=== PATIENT | female | born 2000 | race Caucasian/White ===

== ENCOUNTER 2022-01-05 20:09 | Outpatient (CLI) | payer BC | END 2022-01-05 20:10 | disposition critical access hospital (66) | LOC: EMS 20:09 | DX: R46.89 Other symptoms and signs involving appearance and behavior (principal); R41.82 Altered mental status, unspecified; T62.0X1A Toxic effect of ingested mushrooms, accidental (unintentional), initial encounter; Z78.1 Physical restraint status | CPT/HCPCS: A0425; A0429 ==

== ENCOUNTER 2022-01-05 20:19 | Emergency (ER) | payer BC ==
--- NOTE | 2022-01-05 20:20 | ED Physician Documentation ---
PD HPI ALTERED MENTAL STATUS - Stated complaint Stated Complaint: AMS, MUSHROOMS - History obtained from History obtained from: EMS - History of Present Illness Timing - onset: Today (tonight) Quality / character: Agitated Basline status: Alert and oriented X 3, Ambulatory, Independent - Additional information Additional information: BIBA. Per EMS, patient had ingested mushrooms earlier today and became increasingly confused, then delirious and screaming. On arrival she requires chemical and physical restraints and cannot provide any contribution to HPI/ROS due to AMS. She is not following commands and is repeatedly screaming odd words and phrases. Review of Systems Unable to obtain: AMS PD PAST MEDICAL HISTORY - Past Medical History Other Past Medical History: unknown - Allergies Allergies/Adverse Reactions: Allergies Allergy/AdvReac Type Severity Reaction Status Date / Time No Known Drug Allergies Allergy Verified 01/05/22 20:29 PD ED PE NORMAL - Vitals Vital signs reviewed: Yes - HEENT HEENT: Atraumatic, PERRL, EOMI - Cardiac Cardiac: No murmur - Respiratory Respiratory: No respiratory distress, Clear bilaterally - Abdomen Abdomen: Soft, Non tender - Derm Derm: Normal color, Warm and dry PD ED PE EXPANDED - Cardiac Cardiac: Tachy, Regular Rhythm - GCS Eye Opening: Spontaneous Motor: Localizes to Pain Verbal: Inappropriate Total: 12 - Psych Psych: Agitated, Other (screaming odd words and phrases). No: Combative Results - Vitals Vitals: Oxygen O2 Source Room air - Labs Labs: Laboratory Tests 01/05/22 01/05/22 01/05/22 21:15 21:15 21:15 WBC 14.8 H RBC 4.60 Hgb 13.5 Hct 39.9 MCV 86.7 MCH 29.3 MCHC 33.8 RDW 12.7 Plt Count 396 MPV 8.8 Neut # (Auto) 11.9 H Lymph # (Auto) 1.9 Iroquois # (Auto) 0.9 Eos # (Auto) 0.0 Baso # (Auto) 0.0 Absolute Nucleated RBC 0.00 Nucleated RBC % 0.0 Sodium 139 Potassium 3.3 L Chloride 104 Carbon Dioxide 22 Anion Gap 13.0 BUN 14 Creatinine 0.9 Estimated GFR (MDRD) 78 L Glucose 111 H Calcium 9.9 Total Bilirubin 0.7 AST 24 ALT 18 Alkaline Phosphatase 31 L Total Creatine Kinase 175 CK-MB (CK-2) 2.0 Total Protein 7.9 Albumin 4.5 Globulin 3.4 Albumin/Globulin Ratio 1.3 Lipase 33 HCG, Quant Salicylates < 6.0 Urine Opiates Screen Ur Oxycodone Screen Urine Methadone Screen Ur Propoxyphene Screen Acetaminophen < 10 L Ur Barbiturates Screen Ur Tricyclics Screen Ur Phencyclidine Scrn Ur Amphetamine Screen U Methamphetamines Scrn U Benzodiazepines Scrn Urine Cocaine Screen U Cannabinoids Screen Ethyl Alcohol < 5.0 01/05/22 01/05/22 21:15 22:50 WBC RBC Hgb Hct MCV MCH MCHC RDW Plt Count MPV Neut # (Auto) Lymph # (Auto) Iroquois # (Auto) Eos # (Auto) Baso # (Auto) Absolute Nucleated RBC Nucleated RBC % Sodium Potassium Chloride Carbon Dioxide Anion Gap BUN Creatinine Estimated GFR (MDRD) Glucose Calcium Total Bilirubin AST ALT Alkaline Phosphatase Total Creatine Kinase CK-MB (CK-2) Total Protein Albumin Globulin Albumin/Globulin Ratio Lipase HCG, Quant < 0.60 Salicylates Urine Opiates Screen NEGATIVE Ur Oxycodone Screen NEGATIVE Urine Methadone Screen NEGATIVE Ur Propoxyphene Screen NEGATIVE Acetaminophen Ur Barbiturates Screen NEGATIVE Ur Tricyclics Screen NEGATIVE Ur Phencyclidine Scrn NEGATIVE Ur Amphetamine Screen POSITIVE H U Methamphetamines Scrn NEGATIVE U Benzodiazepines Scrn NEGATIVE Urine Cocaine Screen NEGATIVE U Cannabinoids Screen POSITIVE H Ethyl Alcohol PD MEDICAL DECISION MAKING - ED course Complexity details: reviewed results, re-evaluated patient, considered differential, d/w patient ED course: arrives with very altered mental status, screaming odd phrases, not following commands. She is put in four-point restraints for her safety and given 10mg IM zyprexa. The zyprexa had intended effect, with patient subsequently falling asleep. IV placed and blood tests obtained. Mild leukocytosis noted. UDS positive for amphetamines (she take adderall) and canabinoids. Within a couple of hours of the zyprexa being given, she is awake, alert, conversant, calm and appropriate. she does not remember coming in to the ED. She initially says she thinks she had a panic attack but admits to using mushrooms when I ask her if this information from EMS was accurate. She is comfortable with being discharged. I advised her to not use mushrooms again. Departure - Departure Disposition: 01 Home, Self Care Clinical Impression: Delirium, drug-induced Condition: Good Instructions: ED Drug Abuse General Comments: You were very delirious when you first came to the emergency department tonight; you were yelling/screaming repeatedly and weren't making any sense. You were given a shot of medication (zyprexa) for sedation. This worked well, and now that you are awake, alert, oriented and calm, you are being discharged home. I would recommend that you not use mushrooms again. Discharge Date/Time: 01/05/22 23:50 Face to Face for Restraints - Immediate Situation Face to Face Evaluation Date: 01/05/22 Face to Face Evaluation Time: 20:42 Restraint Situation: Locking Patient's Reactions to the Intervention: Fighting restraints, Screaming/Yelling, Crying - Behavioral Condition Attitude: Indifferent Behavior: Agitated Orientation: Non-responsive (does not answer any questions; repeatedly yelling out odd phrases (such as repeatedly yelling her last name, yelling "whistle")) Mood: Angry, Other (screaming ,yelling) - Evaluation Review of Systems: see H+P Pertinent History/Illicit Drugs/Medications/Results: unable to obtain from patient; per EMS , patient reportedly took mushrooms this evening. - Plan Need to Continue or Terminate Violent or Chemical Restraint: Patient needs to be awake, alert, oriented and communicative in a manner that makes it clear that she will be calm, cooperative, and able to control impulses.
[2022-01-05] MEDS ORDERED: OLANZapine 10 MG VIAL IM STA (20:21)
[2022-01-05] MEDS ORDERED: SODIUM CHLORIDE 0.9% 1,000 ML IV STA (20:23)
[2022-01-05 21:32] LABS: BASOPHILS % (AUTO) 0.1 %; EOSINOPHILS % (AUTO) 0.1 %; HCT - HEMATOCRIT 39.9 % (37.0-47.0); HGB - HEMOGLOBIN 13.5 g/dL (12.0-16.0); LYMPHOCYTES # (AUTO) 1.9 10^3/uL (1.5-3.5); LYMPHOCYTES % (AUTO) 12.7 %; MEAN CORPUSCULAR HEMOGLOBIN 29.3 pg (27.0-31.0); MEAN CORPUSCULAR HGB CONC 33.8 g/dL (32.0-36.0); MEAN CORPUSCULAR VOLUME 86.7 fL (81.0-99.0); MEAN PLATELET VOLUME 8.8 fL (7.9-10.8); MONOCYTES # (AUTO) 0.9 10^3/uL (0.0-1.0); MONOCYTES % (AUTO) 6.2 %; NEUTROPHILS # (AUTO) 11.9 10^3/uL (1.5-6.6); NEUTROPHILS % (AUTO) 80.6 %; PLT - PLATELET COUNT 396 10^3/uL (130-450); RED CELL DISTRIBUTION WIDTH 12.7 % (12.0-15.0); WHITE BLOOD COUNT 14.8 x10^3/uL (4.8-10.8)
[2022-01-05 21:47] LABS: ACETAMINOPHEN < 10 ug/mL (10-30); ALBUMIN 4.5 g/dL (3.2-5.5); ALBUMIN/GLOBULIN RATIO 1.3 (1.0-2.2); ALKALINE PHOSPHATASE 31 IU/L (42-121); ALT ALANINE AMINOTRANSFERASE 18 IU/L (10-60); AST ASPARTATE AMINOTRANSFERASE 24 IU/L (10-42); BILIRUBIN,TOTAL 0.7 mg/dL (0.2-1.0); BUN - BLOOD UREA NITROGEN 14 mg/dL (6-20); CALCIUM 9.9 mg/dL (8.5-10.3); CARBON DIOXIDE - CO2 22 mmol/L (21-32); CHLORIDE 104 mmol/L (101-111); CK- CREATINE KINASE 175 IU/L (22-269); CREATININE 0.9 mg/dL (0.4-1.0); ETOH - ETHANOL < 5.0 mg/dL; GFR - MDRD 78 (>89); GLUCOSE 111 mg/dL (70-100); LIPASE 33 U/L (22-51); POTASSIUM 3.3 mmol/L (3.5-5.0); SALICYLATE < 6.0 mg/dL; SODIUM 139 mmol/L (135-145); TOTAL PROTEIN 7.9 g/dL (6.7-8.2)
[2022-01-05 23:01] VITALS: BP 108/64
[2022-01-05 23:09] LABS: MUDS CUTOFF CONCENTRATIONS CUTOFF CONC BELOW:
[2022-01-05 23:42] LABS: AMPHETAMINE SCREEN,URINE POSITIVE (NEGATIVE); BARBITURATE SCREEN,UR NEGATIVE (NEGATIVE); BENZODIAZEPINES SCREEN, URINE NEGATIVE (NEGATIVE); COCAINE SCREEN URINE NEGATIVE (NEGATIVE); METHADONE SCREEN, URINE NEGATIVE (NEGATIVE); METHAMPHETAMINES SCREEN, URINE NEGATIVE (NEGATIVE); OPIATE SCREEN, URINE NEGATIVE (NEGATIVE); OXYCODONE SCREEN, URINE NEGATIVE (NEGATIVE); PROPOXYPHENE SCREEN, URINE NEGATIVE (NEGATIVE); THC CANNABINOID SCREEN, URINE POSITIVE (NEGATIVE); TRICYCLIC ANTIDEPRESSANT,URINE NEGATIVE (NEGATIVE)
== END 2022-01-05 23:50 | disposition home or self-care (01) ==
LOC: ED 20:19
DX: F19.921 Other psychoactive substance use, unspecified with intoxication with delirium (principal); Z78.1 Physical restraint status
CPT/HCPCS: 36415; 80053; 80306; 80307; 80320; 80329; 82550; 82553; 83690; 84702; 85025; 96360; 99281